=== PATIENT | male | born 1975 | race Caucasian/White ===

== ENCOUNTER 2016-10-13 22:14 | Emergency (ER) | payer MEDICAID ==
[~2016-10-13] VITALS: Ht 188 cm; Wt 138.3 kg
[~2016-10-13 22:14] MED LIST: ALPR1TAB2 PO; PAX20 PO
[2016-10-13 22:58] VITALS: BP 168/89
--- NOTE | 2016-10-14 02:44 | NUR ---
PATIENT TO ER BED 4.
--- NOTE | 2016-10-14 02:47 | NUR ---
41 Y/O M W/C/O DIZZINESS X 1 WKS. FEELING LIKE PASSIN OUT, PALPITATION. HX.DM, PANIC ATTACK. ON XANAX. PT STATES WHEN OFF ROADING AND WAS OUTDOORS IN EXTREMELY HOT WEATHER LAST SATURDAY AND HAS BEING FEEL SICK SINCE THEN.
--- NOTE | 2016-10-14 03:00 | NUR ---
PATIENT BEING EVALUATED BY DR. WILEY.
[2016-10-14 03:07] LABS: HEMATOCRIT 47.2 % (36-52); HEMOGLOBIN 15.6 g/dL (12.0-18.0); MEAN CORPUSCULAR HEMOGLOBIN 29 pg (27-31); MEAN CORPUSCULAR HGB CONC 33 g/dL (33-37); MEAN CORPUSCULAR VOLUME 88 fL (80-94); PLATELET COUNT (AUTO) 207 K/uL (140-450); RED BLOOD CELL COUNT(AUTO) 5.39 MIL/uL (4.20-6.10); RED CELL DISTRIBUTION WIDTH 13.1 % (11.6-13.7); WHITE BLOOD COUNT (AUTO) 9.4 K/uL (4.8-10.8)
[2016-10-14 03:18] LABS: ANION GAP 12.1 (8-16); CALCIUM 9.1 mg/dL (8.5-10.1); CARBON DIOXIDE 28.1 mmol/L (21-32); CREATININE 0.8 mg/dL (0.7-1.3); POTASSIUM 4.2 mmol/L (3.5-5.1)
[2016-10-14 03:24] LABS: EOSINOPHILS % (MANUAL) 1 % (0-4); LYMPHOCYTES % (MANUAL) 29 % (20-46); MONOCYTES % (MANUAL) 4 % (5-12); NEUTROPHILS % (MANUAL) 66 (43-65)
[2016-10-14] MEDS ORDERED: NACL 0.9% 1,000 ML IV ONE (03:25)
[2016-10-14 03:27] LABS: ALBUMIN 3.9 g/dL (3.4-5.0); TOTAL BILIRUBIN 0.4 mg/dL (0.0-1.0); TOTAL PROTEIN, SERUM 8.4 g/dL (6.4-8.2)
[2016-10-14 04:13] LABS: APPEARANCE,URINE CLEAR (CLEAR); BILIRUBIN,URINE NEGATIVE (NEGATIVE); BLOOD, URINE TRACE-L (NEGATIVE); COLOR,URINE YELLOW (YELLOW); LEUKOCYTE ESTERASE ,URINE NEGATIVE (NEGATIVE); NITRITE, URINE NEGATIVE (NEGATIVE); PH,URINE 5.5 (5.0-9.0); PROTEIN,URINE 1+ (NEGATIVE); UGLUCOSE NEGATIVE (NEGATIVE); UROBILINOGEN,URINE 0.2 EU/dL (0.2 - 1)
[2016-10-14 04:24] LABS: BACTERIA,URINE OCCASSIONAL /HPF (None Seen); RBC,URINE 0-5 (RARE) /HPF (0-5); SQUAMOUS EPITHELIAL CELL,UR 0-3 (FEW) /LPF (0-3 (FEW)); WBC,URINE 0-5 (RARE) /HPF (0-5)
--- NOTE | 2016-10-14 04:52 | NUR ---
PT RESTING IN BED DENIES ANY PAIN AT THE MOMENT. VSS.
[2016-10-14 05:19] VITALS: BP 142/78
--- NOTE | 2016-10-14 05:19 | NUR ---
Patient discharged with v/s stable. Written and verbal after care instructions given and explained. Patient alert, oriented and verbalized understanding of instructions. Ambulatory with steady gait. All questions addressed prior to discharge. ID band removed. Patient advised to follow up with PMD OR RETURN TO ER IF CONDITION WORSENS. Rx of METFORMIN given. Patient educated on indication of medication including possible reaction and side effects. Opportunity to ask questions provided and answered.
== END 2016-10-14 05:19 | disposition home or self-care (01) ==
LOC: MED 22:14
DX: E11.65 Type 2 diabetes mellitus with hyperglycemia (principal); I10 Essential (primary) hypertension; Z88.5 Allergy status to narcotic agent; Z88.6 Allergy status to analgesic agent
CPT/HCPCS: 36415; 71010; 80053; 81001; 82948; 84484; 85025; 93005; 96360; 99285; J7030

== ENCOUNTER 2019-04-20 10:26 | Emergency (ER) | payer MEDICAID ==
[~2019-04-20] VITALS: Ht 188 cm; Wt 147.4 kg
[~2019-04-20 10:26] MED LIST changes: +METF500T PO
[2019-04-20 11:42] VITALS: BP 152/96
--- NOTE | 2019-04-20 11:45 | NUR ---
PT AMBULATES BACK TO THE LOBBY
--- NOTE | 2019-04-20 13:40 | NUR ---
PATIENT TO CHAIR-B AT THIS TIME.
[2019-04-20] MEDS ORDERED: DEXAMETHASONE 10 MG/ML VIAL IM ONE (13:45)
--- NOTE | 2019-04-20 14:00 | NUR ---
c/o hacking cough with bodyaches, fever, generalized weakness, fatigue---
[2019-04-20 14:08] VITALS: BP 142/93
--- NOTE | 2019-04-20 14:09 | NUR ---
Patient discharged with v/s stable. Written and verbal after care instructions given and explained. Patient alert, oriented and verbalized understanding of instructions. Ambulatory with steady gait. All questions addressed prior to discharge. ID band removed. Patient advised to follow up with PMD. Rx of albuterol/tessalon pearles/tylenol/motrin given. Patient educated on indication of medication including possible reaction and side effects. Opportunity to ask questions provided and answered.
== END 2019-04-20 14:09 | disposition home or self-care (01) ==
LOC: MED 10:26
DX: J06.9 Acute upper respiratory infection, unspecified (principal); E11.9 Type 2 diabetes mellitus without complications; I10 Essential (primary) hypertension; F17.210 Nicotine dependence, cigarettes, uncomplicated; Z79.84 Long term (current) use of oral hypoglycemic drugs; Z79.899 Other long term (current) drug therapy; Z88.5 Allergy status to narcotic agent; Z88.8 Allergy status to other drugs, medicaments and biological substances
CPT/HCPCS: 96372; 99283; J1100

== ENCOUNTER 2021-04-28 12:08 | Emergency (ER) | payer MEDICAID ==
[~2021-04-28] VITALS: Ht 188 cm; Wt 137.0 kg
[2021-04-28 12:30] VITALS: BP 156/87
[2021-04-28] MEDS ORDERED: NAPR-54 PO (12:48)
[2021-04-28] MEDS ORDERED: GABA300C PO (12:48)
--- NOTE | 2021-04-28 13:00 | NUR ---
PER [facility] PT LEFT WRAIST WAS OLACE IN A SPLINT AND PMCS WAS ASSESSED ALL WNL
[2021-04-28 13:25] VITALS: BP 156/87
--- NOTE | 2021-04-28 13:40 | NUR ---
Patient discharged with v/s stable. Written and verbal after care instructions given and explained. Patient alert, oriented and verbalized understanding of instructions. Ambulatory with steady gait. All questions addressed prior to discharge. ID band removed. Patient advised to follow up with PMD. Rx of gabapentin, naproxen given. Patient educated on indication of medication including possible reaction and side effects. Opportunity to ask questions provided and answered.
== END 2021-04-28 13:40 | disposition home or self-care (01) ==
LOC: MED 12:08
DX: G56.02 Carpal tunnel syndrome, left upper limb (principal); R20.0 Anesthesia of skin; E11.9 Type 2 diabetes mellitus without complications; I10 Essential (primary) hypertension; Z79.899 Other long term (current) drug therapy; Z90.49 Acquired absence of other specified parts of digestive tract; Z79.84 Long term (current) use of oral hypoglycemic drugs; Z88.5 Allergy status to narcotic agent; Z88.8 Allergy status to other drugs, medicaments and biological substances
CPT/HCPCS: 99283

== ENCOUNTER 2022-10-12 22:27 | Emergency (ER) | payer MEDICAID ==
[~2022-10-12] VITALS: Ht 188 cm; Wt 133.4 kg
[~2022-10-12 22:27] MED LIST changes: +GABA300C PO; +METF-346 PO; -METF500T PO; +NAPR-54 PO
[2022-10-12 22:30] VITALS: BP 145/98; PULSE 86; RESP 17; TEMP 98; O2SAT 97
--- NOTE | 2022-10-12 22:30 | NUR ---
TO BED AMBULATORY
[2022-10-12] MEDS ORDERED: cefTRIAXone 1,000 MG in LIDOCAINE MPF 1% 2.1 ML IM ONE (22:40)
--- NOTE | 2022-10-12 22:56 | NUR ---
47 YO M BIB SELF C/O RIGHT ELBOW PAIN X 1 WEEK. RED ABSCESS ON RIGHT ELBOW. AXO4. PT LYING IN BED WITH NO S/S PAIN OR DISTRESS AND CALL LIGHT WITHIN REACH. ALLERGIES: CODEINE, SERTRALINE, DAYQUIL, NYQUIL MED HX: DM
[2022-10-12] MEDS ORDERED: cefTRIAXone 1,000 MG VIAL ONE (22:59)
[2022-10-12] MEDS ORDERED: LIDOCAINE MPF 1% 5 ML ONE (22:59)
[2022-10-12] MEDS ORDERED: CEPH-588 PO (23:29)
--- NOTE | 2022-10-12 23:32 | NUR ---
Patient discharged with v/s stable. Written and verbal after care instructions given and explained. Patient verbalized understanding. Ambulatory with steady gait. All questions addressed prior to discharge. Advised to follow up with PMD.
== END 2022-10-12 23:30 | disposition home or self-care (01) ==
LOC: MED 22:27
DX: L03.113 Cellulitis of right upper limb (principal); E11.9 Type 2 diabetes mellitus without complications; I10 Essential (primary) hypertension; Z88.5 Allergy status to narcotic agent; Z88.8 Allergy status to other drugs, medicaments and biological substances; Z79.899 Other long term (current) drug therapy; Z79.84 Long term (current) use of oral hypoglycemic drugs
CPT/HCPCS: 96372; 99283; J0696; J2001